=== PATIENT | female | born 1985 | race Caucasian/White ===

== ENCOUNTER 2017-06-12 08:52 | Emergency (ER) | payer OTHER ==
[~2017-06-12] VITALS: Ht 165.1 cm; Wt 72.2 kg
[~2017-06-12 08:52] MED LIST: ENDOCET 5-3251 EACH PO; IBUPROFEN800 MG PO; IRON325 M1 PO; LEVOTHYROXINE100 MCG PO; NEURONTIN300 MG PO; PRENATAL TABLE1 EAC3 PO; VITAMIN D2000 UNI1 PO; synthroid
[2017-06-12 09:32] LABS: HEMATOCRIT 36.3 % (36.0-46.0); MCH 30.7 PG (29.0-34.0); MCHC 32.5 G/DL (30.0-36.0); MCV 94.5 FL (83-99); MEAN PLAT.VOLUME 10.3 uM^3 (9.5-12.4); PLATELET COUNT 169 K/uL (156-360); RBC DIS.WIDTH-CV 13.2 % (11.8-14.6); RBC DIS.WIDTH-SD 46.6 % (39-53); RED BLOOD COUNT 3.84 M/uL (3.80-5.20); WHITE BLOOD COUNT 5.8 K/uL (4.1-10.2)
[2017-06-12 10:02] LABS: QUANTITATIVE HCG < 4.0 MIU/ML
[2017-06-12 10:23] LABS: ANION GAP 7 MEQ/L (2-14); CHLORIDE 109 MEQ/L (99-109); POTASSIUM 3.7 MEQ/L (3.7-5.4); SAMPLE HEMOLYSIS CHECK 0; SAMPLE ICTERIC CHECK 0; SAMPLE LIPEMIA CHECK 0; SODIUM 140 MEQ/L (136-147); TOTAL BILIRUBIN 0.6 MG/DL (0.0-1.0)
[2017-06-12 10:26] LABS: ADD MIUA? YES; BILIRUBIN NEGATIVE; BLOOD NEGATIVE; COLOR YELLOW ((YELLOW)); GLUCOSE (STRIP) NEGATIVE; KETONES 20; LEUKOCYTES NEGATIVE; NITRITE NEGATIVE; PROTEIN (STRIP) 100; SPECIFIC GRAVITY 1.017 (1.000-1.030); UROBILINOGEN 0.2 MG/DL (0.2-1.0)
[2017-06-12 10:29] LABS: ALKALINE PHOSPHATASE 56 IU/L (3-129); GFR ESTIMATE (CALCULATED) > 59 mL/min/; GLUCOSE 91 mg/dL (70-99); LIPASE 9 U/L (1.0-51.0); UREA NITROGEN (BUN) 7 mg/dL (9-23)
[2017-06-12] MEDS ORDERED: BENTYL10 MG PO (10:40)
[2017-06-12] MEDS ORDERED: ZOFRAN ODT4 MG PO (10:40)
[2017-06-12 10:47] LABS: BACTERIA 3+ /HPF; EPITHELIAL CELLS 4+ /HPF; MUCUS 4+ /LPF
[2017-06-12 11:07] VITALS: BP 97/68
== END 2017-06-12 11:08 | disposition home or self-care (01) ==
LOC: EME 08:52
PROVIDERS: Nurse Practitioner Family
DX: R11.2 Nausea with vomiting, unspecified (principal); R10.84 Generalized abdominal pain; R51 Headache; E03.9 Hypothyroidism, unspecified
CPT/HCPCS: 80053; 81003; 83690; 84702; 85027; 99281; 99284; J1885; J2060; J2405; J2765; J7030